=== PATIENT | male | born 1960 | race Caucasian/White ===

== ENCOUNTER → 2025-08-21 13:35 | Outpatient (REF) | payer OTHER, SELFPAY | LOC: RCS 13:35 | PROVIDERS: ATTENDING PHYSICIAN Family Medicine | DX: I10 Essential (primary) hypertension (principal); E66.01 Morbid (severe) obesity due to excess calories; E11.59 Type 2 diabetes mellitus with other circulatory complications; R07.9 Chest pain, unspecified | CPT/HCPCS: 93017 ==

== ENCOUNTER 2025-08-26 09:23 | Day surgery (SDC) | payer OTHER, SELFPAY ==
[2025-08-26] VITALS (8 sets, daily range): BP systolic 136–186; BP diastolic 61–99; BMI 40.0
[2025-08-26 09:56] LABS: APTT 28.9 Sec (23.4-35.0); INR 1.06; PT 14.1 Sec (11.4-14.6)
[2025-08-26 09:58] LABS: Hematocrit 41.8 % (39.0-52.0); Hemoglobin 14.7 g/dL (13.0-18.0); Mean Corp Hgb Conc. 35.2 g/dL (33.0-37.0); Mean Corpuscular Volume 85.3 fL (80.0-94.0); Platelet Count 213 10^3/uL (130-400); Red Cell Dist. Width 12.8 % (11.5-14.5)
[2025-08-26 10:01] LABS: Blood Urea Nitrogen 19 mg/dl (9-20); Calcium 10.0 mg/dl (8.4-10.2); Carbon Dioxide 29 mmol/L (22-30); Chloride 104 mmol/L (98-107); Estimated Creatinine Clearance 110 ml/min; Glucose 131 mg/dl (70-99); Potassium 3.8 mmol/L (3.5-5.1); Sodium 141 mmol/L (135-145); eGFR > 60.00
[2025-08-26] MEDS: NSS 418 ML IV (10:04)
[2025-08-26 12:26] LABS: ACT-LR - POC 186 Seconds (116-155)
[2025-08-26 12:35] LABS: ACT-LR - POC 268 Seconds (116-155)
[2025-08-26 12:56] LABS: ACT-LR - POC 263 Seconds (116-155)
[2025-08-26 13:02] LABS: ACT-LR - POC > 397 Seconds (116-155)
--- NOTE | 2025-08-26 13:33 | ITS.CL.CATH ---
Plastics Scientist - Catheterization
Cardiac Catheterization
Procedure Report:
LEFT HEART CATH AND CORONARY INTERVENTION
Date of Procedure: August 26, 2025
Referring: Dr. Jak Lockwood
PROCEDURES:
1. Left heart catheterization with coronary and single-plane left ventriculography
2. Successful stenting of large OM1 with a 3.0 x 15 mm Von stent that was implanted at nominal pressures and postdilated with a 3.25 mm noncompliant balloon
INDICATION: This is a 65-year-old gentleman with a past medical history notable for hyperlipidemia and hypertension and recent development of exertional chest tightness. A recent stress study was notable for poor exercise tolerance with the
development of anginal symptoms and ECG changes with the stress of exercise. He is now referred for coronary angiography
ACCESS: Right radial artery, 6 [place] sheath
HEMODYNAMICS (mmHg):
AO (s/d, m) : 111/71, 89
LV (s/d) : 109/12
LVEDP : 17
CORONARY FINDINGS
Dominance: Right
LEFT MAIN: Normal
LEFT ANTERIOR DESCENDING: The LAD arises normally from the left main and runs in the anterior interventricular groove the LAD has minor irregularities over its course.
RAMUS: Small
CIRCUMFLEX: The circumflex is a large. OM1 is large and arises very proximally from the circumflex and has a 95% proximal stenosis. The circumflex terminates in a moderate caliber OM 2.
RIGHT CORONARY: The origin of the right coronary artery was cannulated with a 6 [place] AR mod catheter. The right coronary artery is mild irregularities over its course to 30%. No high-grade focal obstructive stenosis. The PDA is widely patent.
VENTRICULOGRAPHY: Left ventriculography is performed in an MICHAELS projection. The digital single-plane left ventricular ejection fraction is estimated at 60%. Mild anterolateral hypokinesis is noted.
ANGIOPLASTY PROCEDURE DETAIL: Upon review of the diagnostic catheterization films the decision was made to proceed with percutaneous revascularization of the high-grade proximal stenosis in the large OM1. A 600 mg loading dose of clopidogrel was
administered at the beginning of the interventional procedure. Intravenous heparin was given and the ACT was monitored.
The origin of the left main was cannulated with a 6 [place] EBU 3.5 guiding catheter. A BMW guidewire was advanced across the stenosis in OM1. Attempted to cross the lesion with a 3.0 x 15 mm Von stent. Unfortunately, the stent would not cross
and was removed. Balloon predilation was then performed with a 2.0 x 12 mm mini trek balloon and was followed by placement of a 3.0 x 15 mm Von stent that was implanted at nominal pressures and postdilated with a 3.5 mm noncompliant balloon to
high pressures with a nice angiographic result
SEDATION: 65 minutes of procedural sedation was utilized. An independent medical director occupational health was present to assist with and help manage the patient's level of consciousness and physiologic status
RADIATION SUMMARY: Fluoro Time (min): 12.7, Dose (mGy): 1768, DAP (Gy.cm2) : 109
CONCLUSIONS
1. High-grade stenosis in large OM1. Successful angioplasty and stenting with a 3.0 x 15 mm [place] stent that was postdilated to high-pressure's with a 3.5 mm noncompliant balloon
2. Preserved LV systolic function
RECOMMENDATIONS
1. High intensity statin therapy
2. Uninterrupted aspirin and clopidogrel for 6 months and lifelong aspirin thereafter
3. Needs aggressive control of blood pressure and risk modification
Copy to: Dr. Jak Lockwood
--- NOTE | 2025-08-26 16:13 | W.PN.UPDATE ---
Update Note
Progress Note Update
Pt seen post OM1 PCI. Right radial site without ht/bleeding, non tender. OOB ambulating. Post EKG SB 50s, w/PAC, no acute changes. Pt understands importance of uninterrupted DAPT w/asa, plavix. Increase atorvastatin to 80mg/d. Cardiac rehab
consulted. Followup at [facility] as scheduled. Home today if cath site/tele remain stable.
== END 2025-08-26 18:00 | disposition home or self-care (01) ==
LOC: CATH 09:23
PROVIDERS: ATTENDING PHYSICIAN Internal Medicine Interventional Cardiology; FAMILY PHYSICIAN Family Medicine; OTHER PHYSICIAN Internal Medicine Cardiovascular Disease
DX: I25.10 Atherosclerotic heart disease of native coronary artery without angina pectoris (principal); I10 Essential (primary) hypertension; E78.5 Hyperlipidemia, unspecified; Z79.82 Long term (current) use of aspirin; Z79.899 Other long term (current) drug therapy; Z79.02 Long term (current) use of antithrombotics/antiplatelets
CPT/HCPCS: 80048; 85027; 85347; 85610; 85730; 93005; 93458; 99152; 99153; C1725; C1769; C1874; C1894; C9600; Q9967

== ENCOUNTER 2025-10-15 17:44 | Outpatient (RCR) | payer OTHER, SELFPAY | END 2025-10-15 23:59 | disposition home or self-care (01) | LOC: CRHB 17:44 | PROVIDERS: ATTENDING PHYSICIAN Internal Medicine Cardiovascular Disease; FAMILY PHYSICIAN Family Medicine | DX: I25.10 Atherosclerotic heart disease of native coronary artery without angina pectoris (principal); Z95.5 Presence of coronary angioplasty implant and graft | CPT/HCPCS: 93798; G0422; G0423 ==

== ENCOUNTER → 2025-10-29 07:56 | Outpatient (REF) | payer OTHER, SELFPAY | LOC: HWRCS 07:56 | PROVIDERS: ATTENDING PHYSICIAN Physician Assistant Medical; FAMILY PHYSICIAN Family Medicine | DX: I25.10 Atherosclerotic heart disease of native coronary artery without angina pectoris (principal); Z95.5 Presence of coronary angioplasty implant and graft | CPT/HCPCS: 93306 ==